=== PATIENT | male | born 1980 | race Caucasian/White ===

== ENCOUNTER → 2020-05-19 09:36 | Outpatient (CLI) | payer OTHER, SELFPAY ==
[2020-05-19 11:58] LABS: Add Manual Diff / Slide Review NO; Basophils Absolute Auto 100 /uL (0-100); Basophils Percent Auto 0.8 % (0-2); Eosinophils Absolute Auto 200 /uL (0-450); Eosinophils Percent Auto 2.6 % (2-4); Hematocrit 46.9 % (41-53); Hemoglobin 16.2 g/dL (13.5-17.5); Lymphocytes Absolute Auto 2300 /uL (1100-4500); Lymphocytes Percent Auto 28.6 % (25-40); Mean Corpuscular HGB Conc 34.6 % (30-36); Mean Corpuscular Hemoglobin 29.3 PG (26-34); Mean Corpuscular Volume 84.9 fL (80-100); Monocytes Absolute Auto 500 /uL (0-900); Monocytes Percent Auto 5.6 % (3-14); Neutrophils Absolute Auto 5100 /uL (1500-7000); Neutrophils Percent Auto 62.4 % (50-75); Platelet Count 169 X10^3/uL (150-400); Red Blood Cell Count 5.53 X10^6/uL (4.5-5.9); Red Cell Distribution Width 13.8 % (11.6-14.8); White Blood Cell Count 8.2 X10^3/uL (4.5-11.0)
[2020-05-19 12:20] LABS: Alanine Aminotransferase 92 IU/L (<50); Albumin 4.5 g/dL (3.5-5.0); Albumin Globulin Ratio 1.5 (1.0-2.8); Alkaline Phosphatase 87 U/L (38-126); Aspartate Aminotransferase 40 IU/L (17-59); BUN Creatinine Ratio 12.4 (6-22); Bilirubin Total 0.6 mg/dL (0.2-1.3); Blood Urea Nitrogen 14 mg/dL (9-20); Calcium 9.5 mg/dL (8.4-10.2); Carbon Dioxide 28 mmol/L (22-32); Chloride 104 mmol/L (98-107); Cholesterol 259 mg/dL (140-199); Estimated Glomerular Filt Rate > 60.0 mL/min (>60); Globulin 3.1 g/dL (1.7-4.1); Glucose 83 mg/dL (70-100); HDL Cholesterol 34 mg/dL (40-60); HEMOLYSIS < 15 (0-50); LDL Cholesterol Calculated 175 mg/dL (<100); Potassium 4.4 mmol/L (3.4-5.1); Sodium 139 mmol/L (137-145); Total Protein 7.6 g/dL (6.3-8.2); Triglycerides 251 mg/dL (35-150)
== END ==
PROVIDERS: PCP Internal Medicine; Referring Provider Internal Medicine; Visit Provider Internal Medicine
DX: K21.9 Gastro-esophageal reflux disease without esophagitis (principal); Z13.1 Encounter for screening for diabetes mellitus; Z13.220 Encounter for screening for lipoid disorders; Z13.6 Encounter for screening for cardiovascular disorders
CPT/HCPCS: 36415; 80053; 80061; 85025

== ENCOUNTER → 2020-05-22 10:16 | Outpatient (CLI) | payer OTHER, SELFPAY ==
[2020-05-22 11:35] LABS: HEMOLYSIS < 15 (0-50); Iron 75 ug/dL (49-181)
[2020-05-22 11:48] LABS: Percent Iron Saturation 20 % (20-50); Total Iron Binding Capacity 366 ug/dL (261-462); Transferrin 300 mg/dL (206-381)
[2020-05-22 12:08] LABS: TSH w/ Reflex to FT4 2.87 uIU/mL (0.47-4.68)
[2020-05-22 15:18] LABS: Hepatitis B Surface Antigen NEGATIVE s/c (NEGATIVE)
[2020-05-22 15:45] LABS: Hep C Virus Ab w/Reflex Quant NEGATIVE s/c (NEGATIVE)
[2020-05-23 04:36] LABS: Ceruloplasmin 23.8 mg/dL (16.0-31.0); Hepatitis B Surf Ab Qualitativ Non Reactive (.)
[2020-05-24 12:14] LABS: Smooth Muscle Antibody 6 Units (0-19)
[2020-05-24 15:17] LABS: ANA Screen, IFA Negative (.)
[2020-05-25 05:10] LABS: Deamidated Gliadin IgA 11 units (0-19); Deamidated Gliadin IgG 3 units (0-19); IGA 210 mg/dL (90-386); t-Transglutaminase IgA <2 U/mL (0-3)
== END ==
PROVIDERS: PCP Internal Medicine; Referring Provider Internal Medicine; Visit Provider Internal Medicine
DX: R94.5 Abnormal results of liver function studies (principal)
CPT/HCPCS: 36415; 82390; 82784; 83516; 83540; 83550; 84443; 86038; 86706; 86803; 87340

== ENCOUNTER → 2020-07-06 15:08 | Outpatient (CLI) | payer OTHER, SELFPAY ==
[2020-07-06 17:13] LABS: Influenza A - CEPHEID Flu A NEGATIVE (NEGATIVE); Influenza B - CEPHEID Flu B NEGATIVE (NEGATIVE)
[2020-07-07 20:44] LABS: COVID19 Sendout Not Detected (Not Detect)
== END ==
PROVIDERS: PCP Internal Medicine; Visit Provider Nurse Practitioner
DX: Z11.59 Encounter for screening for other viral diseases (principal); R68.89 Other general symptoms and signs
CPT/HCPCS: 87502; 87635

== ENCOUNTER → 2020-07-17 12:13 | Outpatient (CLI) | payer OTHER, SELFPAY ==
--- NOTE | 2020-07-17 12:14 | DI.RAD.S_ITS ---
PROCEDURE: XR CHEST 2V INDICATIONS: continued cough TECHNIQUE: 2 views of the chest were acquired. COMPARISON: None. FINDINGS: Surgical changes and devices: None. Lungs and pleura: Lungs are clear. No pleural effusions or pneumothorax. Mediastinum: Mediastinal contours are normal. Heart size is normal. Bones and chest wall: No suspicious bony abnormalities. Soft tissues appear unremarkable. IMPRESSION: No acute disease. Dictated by: Hang Middleton M.D. on 07/17/2020 at 12:55 Approved by: Hang Middleton M.D. on 07/17/2020 at 12:56
== END ==
PROVIDERS: PCP Internal Medicine; Referring Provider Internal Medicine; Visit Provider Physician Assistant
DX: R05 Cough (principal); R09.89 Other specified symptoms and signs involving the circulatory and respiratory systems
CPT/HCPCS: 71046

== ENCOUNTER 2020-11-20 14:09 | Emergency (ER) | payer OTHER, SELFPAY ==
[2020-11-20 14:22] VITALS: BP 146/93; PULSE 102; RESP 16; TEMP 36.7; O2SAT 99; BMI 33.5
--- NOTE | 2020-11-20 14:30 | DI.RAD.S_ITS ---
PROCEDURE: XR CHEST 1V INDICATIONS: chest pain TECHNIQUE: One view of the chest was acquired. COMPARISON: [facility], CR, XR CHEST 2V, 07/17/2020, 12:12. FINDINGS: Surgical changes and devices: None. Lungs and pleura: Lungs are clear. No pleural effusions or pneumothorax. Mediastinum: Mediastinal contours appear normal. Heart size is normal. Bones and chest wall: No suspicious bony lesions. Overlying soft tissues appear unremarkable. IMPRESSION: No acute cardiopulmonary disease. Dictated by: Antonia Godoy M.D. on 11/20/2020 at 14:01 Approved by: Antonia Godoy M.D. on 11/20/2020 at 14:02
--- NOTE | 2020-11-20 14:42 | ED.CHESTPAIN ---
HPI - Chest Pain General Chief Complaint: Chest Pain Stated Complaint: Headache,Throwing Up, Coughing,Weight On Chest Time Seen by Provider: 11/20/20 14:20 Source: patient Mode of arrival: Ambulatory Limitations: no limitations History of Present Illness HPI narrative: 40-year-old male daily smoker without significant medical history presents with a chief complaint of multiple symptoms presenting over this morning including headache, vomiting, dry hacking cough and some chest pressure. His headache is generalized and absent of any provocation or palliation, perhaps worsening with coughing spells. He denies neurologic symptoms such as blurred vision, trouble with speech or focal numbness, tingling or weakness. His cough is worsened with deep breath and does not produce sputum. The chest pain tends to be sharp and worsened with a deep breath and cough. He denies any recent travel. He has had some runny nose and nasal congestion MD complaint: chest pain Duration: intermittent Pain location: other Quality: sharp Relieving factors: nothing Exacerbating factors: inspiration Associated symptoms: nausea, vomiting, fever and cough Treatments prior to arrival chest pain: none Related Data Home Medications Medication Instructions Recorded Confirmed calcium carbonate 200 mg calcium 400 mg PO DAILY PRN tab 04/10/20 10/12/20 (500 mg) chewable tablet Previous Rx's Medication Instructions Recorded albuterol sulfate 90 mcg/actuation 2 puff INHALATION Q4-6H PRN #8 gram 07/06/20 aerosol inhaler ciprofloxacin HCl 250 mg tablet 250 mg PO BID #10 tab 10/10/20 benzonatate [Tessalon Perles] 100 mg PO TID PRN #14 cap 11/20/20 doxycycline hyclate 100 mg PO BID #20 tab 11/20/20 Allergies Allergy/AdvReac Type Severity Reaction Status Date / Time No Known Drug Allergies Allergy Verified 09/20/20 14:58 Review of Systems Constitutional Constitutional: Reports chills, Denies fatigue, Reports fever(s), Denies frequent falls, Reports headache(s), Denies lethargy and Denies weakness Eyes Eyes: Denies change in vision, Denies eye discharge, Denies irritation and Denies loss of vision ENT Ears, Nose, Mouth, and Throat: Denies change in voice, Denies dizziness, Reports headache(s), Denies neck pain, Denies sore throat and Denies throat swelling Cardiovascular Cardiovascular: Reports chest pain, Denies irregular heart rhythm, Denies lightheadedness, Denies palpitations, Reports dyspnea, Denies dyspnea on exertion and Denies orthopnea Respiratory Respiratory: Reports cough, Reports pain on inspiration, Reports pain with cough, Reports dyspnea, Denies dyspnea on exertion and Denies wheezing Gastrointestinal Gastrointestinal: Denies abdominal pain, Denies change in bowel habits, Denies diarrhea, Reports nausea and Reports vomiting Musculoskeletal Musculoskeletal: Denies neck pain and Denies numbness Integumentary/Breasts Skin/Breast: Denies pruritus, Denies erythema, Denies rash and Denies wounds Neurologic Neurologic: Denies behavioral changes, Denies confusion, Denies dizziness, Denies frequent falls, Reports headache(s), Denies loss of vision, Denies numbness and Denies weakness Psychiatric Psychiatric: Denies anxiety, Denies behavioral changes, Denies confusion, Denies depression, Denies homicidal ideation and Denies suicidal ideation Endocrine Endocrine: Denies fatigue, Denies flushing and Denies palpitations Hematologic/Lymphatic Hematologic/Lymphatic: Denies easy bruising Allergic/Immunologic Allergic/Immunologic: Denies urticaria, Denies throat swelling and Denies wheezing Patient History Medical History Epididymal congestion pain Hearing loss Screening and evaluation for vasectomy Sinusitis Tinnitus Vision disorder Surgical History Anesthesia S/P left knee arthroscopy (~06/2019) Family History Father Hyperlipidemia Hypertension Heart disease Mother Atrial fibrillation Social History marital status: unmarried,single number of children: 3 occupational status: employed Smoking Status: Current every day smoker Tobacco: How many years used: 20 quit status: considering quitting second hand exposure: No alcohol intake: never substance use type: does not use during the past year weight has: remained stable well-balanced diet: daily or most days daily servings fruits/ve-4 caffeine: Yes (2+) eating out: rarely or never Type(s) of exercise: walking frequency: daily duration: 15-30 minutes/day Smoking Status: Current every day smoker tobacco type: cigarettes Substance Use Type: does not use Exam Narrative Exam Narrative: GENERAL: [40] year old patient appears stated age. Well-nourished, well-developed patient, in mild distress. HEAD: Atraumatic. Normocephalic. EYES: Pupils equal round and reactive. Extraocular motions intact. No scleral icterus. No injection or drainage. ENT: Nose without bleeding, purulent drainage. Throat without erythema, tonsillar hypertrophy or exudate. Airway patent. NECK: Trachea midline. Non tender no meningeal signs CARDIOVASCULAR: Regular rate and rhythm without murmurs, gallops, or rubs. RESPIRATORY: Very minimal expiratory wheeze, deep breath illicit is dry hacking cough. No rales or rhonchi GASTROINTESTINAL: Abdomen soft, non-tender, nondistended. EXTREMITIES: No edema or joint tenderness. BACK: Nontender without deformity or crepitance. No flank tenderness. NEURO: AOx3. SKIN: No rash or erythema of visible areas NIH Stroke Scale 1a. LOC: Patient is alert and keenly responsive (0) 1b. LOC Questions: Patient answers both LOC questions accurately (0) 1c. LOC Commands: Patient performs both tasks correctly (0) 2. Best Gaze: Normal (0) 3. Visual: No visual loss (0) 4. Facial palsy: Normal symmetrical movements (0) 5. Motor arm: No drift (0) 6. Motor leg: No drift (0) 7. Limb ataxia: Absent (0) 8. Sensory: Normal (0) 9. Best language: No aphasia; normal (0) 10. Dysarthria: Normal (0) 11. Extinction and inattention: No abnormality (0) NIHSS: 0 Initial Vital Signs Initial Vital Signs: Vital Signs Temperature 98.0 F 11/20/20 14:22 Pulse Rate 102 H 11/20/20 14:22 Respiratory Rate 16 11/20/20 14:22 Blood Pressure 146/93 H 11/20/20 14:22 Pulse Oximetry 99 11/20/20 14:22 Course Orders Ordered: ED Orders 11/20/20 14:24 EKG-12 Lead Stat 11/20/20 14:25 COVID19 Stat 11/20/20 14:30 XR chest 1V Stat 11/20/20 14:38 Complete Blood Count AUTO DIFF Stat Comprehensive Metabolic Panel Stat Lactate (Lactic Acid) Stat Lactate Dehydrogenase Stat Lipase Stat Magnesium Stat Partial Thromboplastin Time Stat Procalcitonin Stat Prothrombin Time INR Stat Troponin & CK Cardiac Panel Stat Discontinued Medications Albuterol/Ipratropium (Albuterol/Ipratropium 3 Ml Ampul) 3 ml INH NOW ONE Stop: 11/20/20 15:32 Last Admin: 11/20/20 15:38 Dose: 3 ml Documented by: MO Sodium Chloride (Normal Saline 0.9%) 1,000 mls @ 1,000 mls/hr IV BOLUS ONE Stop: 11/20/20 16:29 Last Infusion: 11/20/20 16:43 Dose: 0 mls/hr Documented by: Admin: 11/20/20 15:38 Dose: 1,000 mls/hr Documented by: MO Ketorolac Tromethamine (Ketorolac 60 Mg/2 Ml Vial) 15 mg IV NOW ONE Stop: 11/20/20 15:31 Last Admin: 11/20/20 15:38 Dose: 15 mg Documented by: MO Methylprednisolone (Methylprednisolone 125 Mg/2 Ml Vial) 125 mg IV NOW ONE Stop: 11/20/20 15:31 Last Admin: 11/20/20 15:37 Dose: 125 mg Documented by: MO Reevaluation(s) Reevaluation #1: Patient feeling significant improvement after above-stated therapies Vital Signs Vital signs: Vital Signs - 8 hr 11/20/20 14:22 11/20/20 15:44 11/20/20 16:10 Temperature 98.0 F Pulse Rate 102 H 77 83 Respiratory Rate 16 18 23 Blood Pressure 146/93 H Pulse Oximetry 99 97 95 11/20/20 16:30 11/20/20 16:31 11/20/20 16:36 Temperature Pulse Rate 78 79 79 Respiratory Rate 23 20 17 Blood Pressure 122/64 Pulse Oximetry 94 95 97 MDM - Chest Pain Lab Data Result diagrams: 11/20/20 14:38 11/20/20 14:38 Labs: Lab Results 11/20/20 11/20/20 11/20/20 Range/Units 14:25 14:38 14:38 WBC 8.0 (4.5-11.0) X10^3/uL RBC 5.10 (4.5-5.9) X10^6/uL Hgb 14.9 (13.5-17.5) g/dL Hct 43.4 (41-53) % MCV 85.1 (80-100) fL MCH 29.2 (26-34) PG MCHC 34.3 (30-36) % RDW 13.6 (11.6-14.8) % Plt Count 145 L (150-400) X10^3/uL Neut % (Auto) 62.1 (50-75) % Lymph % (Auto) 30.1 (25-40) % [place] % (Auto) 4.6 (3-14) % Eos % (Auto) 2.0 (2-4) % Baso % (Auto) 1.2 (0-2) % Neut # (Auto) 4900 (1485-9072) /uL Lymph # (Auto) 2400 (6051-4481) /uL [place] # (Auto) 400 (0-900) /uL Eos # (Auto) 200 (0-450) /uL Baso # (Auto) 100 (0-100) /uL PT 11.6 (10.1-12.7) SECONDS INR 1.0 (0.9-1.3) APTT 33 (26.4-36.2) SECONDS Sodium (137-145) mmol/L Potassium (3.4-5.1) mmol/L Chloride (98-107) mmol/L Carbon Dioxide (22-32) mmol/L BUN (9-20) mg/dL Creatinine (0.66-1.25) mg/dL Estimated GFR (>60) mL/min BUN/Creatinine Ratio (6-22) Glucose (70-100) mg/dL Lactate (0.7-2.1) mmol/L Calcium (8.4-10.2) mg/dL Magnesium (1.6-2.3) mg/dL Total Bilirubin (0.2-1.3) mg/dL AST (17-59) IU/L ALT (<50) IU/L Alkaline Phosphatase (38-126) U/L Lactate Dehydrogenase (313-618) U/L Total Creatine Kinase (55-170) U/L CK-MB (CK-2) (<2.37) ng/mL CK-MB (CK-2) Rel Index (1.5-5.0) % Troponin I (0.01-0.034) ng/mL Total Protein (6.3-8.2) g/dL Albumin (3.5-5.0) g/dL Globulin (1.7-4.1) g/dL Albumin/Globulin Ratio (1.0-2.8) Lipase (23-300) U/L Procalcitonin (<0.5) ng/mL SARS-CoV-2 (PCR) Negative (Negative) 11/20/20 11/20/20 Range/Units 14:38 14:38 WBC (4.5-11.0) X10^3/uL RBC (4.5-5.9) X10^6/uL Hgb (13.5-17.5) g/dL Hct (41-53) % MCV (80-100) fL MCH (26-34) PG MCHC (30-36) % RDW (11.6-14.8) % Plt Count (150-400) X10^3/uL Neut % (Auto) (50-75) % Lymph % (Auto) (25-40) % [place] % (Auto) (3-14) % Eos % (Auto) (2-4) % Baso % (Auto) (0-2) % Neut # (Auto) (5882-9686) /uL Lymph # (Auto) (8651-2643) /uL [place] # (Auto) (0-900) /uL Eos # (Auto) (0-450) /uL Baso # (Auto) (0-100) /uL PT (10.1-12.7) SECONDS INR (0.9-1.3) APTT (26.4-36.2) SECONDS Sodium 138 (137-145) mmol/L Potassium 3.7 (3.4-5.1) mmol/L Chloride 111 H (98-107) mmol/L Carbon Dioxide 23 (22-32) mmol/L BUN 13 (9-20) mg/dL Creatinine 0.98 (0.66-1.25) mg/dL Estimated GFR > 60.0 (>60) mL/min BUN/Creatinine Ratio 13.3 (6-22) Glucose 109 H (70-100) mg/dL Lactate 1.2 (0.7-2.1) mmol/L Calcium 8.4 (8.4-10.2) mg/dL Magnesium 2.1 (1.6-2.3) mg/dL Total Bilirubin 0.2 (0.2-1.3) mg/dL AST 30 (17-59) IU/L ALT 52 H (<50) IU/L Alkaline Phosphatase 74 (38-126) U/L Lactate Dehydrogenase 450 (313-618) U/L Total Creatine Kinase 233 H (55-170) U/L CK-MB (CK-2) 1.18 (<2.37) ng/mL CK-MB (CK-2) Rel Index 0.5 L (1.5-5.0) % Troponin I < 0.012 (0.01-0.034) ng/mL Total Protein 6.7 (6.3-8.2) g/dL Albumin 3.9 (3.5-5.0) g/dL Globulin 2.8 (1.7-4.1) g/dL Albumin/Globulin Ratio 1.4 (1.0-2.8) Lipase 86 (23-300) U/L Procalcitonin 0.06 (<0.5) ng/mL SARS-CoV-2 (PCR) (Negative) MDM Narrative Medical decision making narrative: Patient with multiple symptoms starting over the course of the day. He is nontoxic and shows no signs of sepsis. His work of breathing his mild and requires no supplemental oxygen. Labs and imaging are very reassuring. COVID considered but thought unlikely given negative swab. Typical pneumonia considered but thought unlikely given presentation and imaging. Atypical pneumonia versus viral upper respiratory infection considered most likely, patient given coverage for atypical pneumonias given his history of smoking and prior improvement under these circumstances. Return precautions given and questions answered to his apparent satisfaction Discharge Plan Departure Patient Disposition: Home Clinical Impression: Atypical pneumonia Instructions: DI for Atypical Pneumonia Activity Restrictions/Additional Instructions: *You have been diagnosed with [atypical pneumonia] *What to do: *Take medications as directed *Follow up with your primary care provider in 2-3 days, call for an appointment. Let them know you were seen in the Emergency Department and that we ask that you be seen in follow up *Return to ER if you should have any new, worsening or concerning symptoms Prescriptions: New benzonatate [Tessalon Perles] 100 mg capsule 100 mg PO TID PRN (Reason: cough) Qty: 14 RF: 0 doxycycline hyclate 100 mg tablet 100 mg PO BID Qty: 20 RF: 0 No Action albuterol sulfate 90 mcg/actuation HFA aerosol inhaler 2 puff INHALATION Q4-6H PRN (Reason: shortness of breath or wheezing) Qty: 8 RF: 0 ciprofloxacin HCl 250 mg tablet 250 mg PO BID Qty: 10 RF: 0 calcium carbonate [Tums] 200 mg calcium (500 mg) tablet,chewable 400 mg PO DAILY PRNRF: 0 Referrals: Humza Houston MD [Primary Care Provider] -
[2020-11-20 14:50] LABS: Add Manual Diff / Slide Review NO; Basophils Absolute Auto 100 /uL (0-100); Basophils Percent Auto 1.2 % (0-2); Eosinophils Absolute Auto 200 /uL (0-450); Hematocrit 43.4 % (41-53); Hemoglobin 14.9 g/dL (13.5-17.5); Lymphocytes Absolute Auto 2400 /uL (1100-4500); Lymphocytes Percent Auto 30.1 % (25-40); Mean Corpuscular HGB Conc 34.3 % (30-36); Mean Corpuscular Hemoglobin 29.2 PG (26-34); Mean Corpuscular Volume 85.1 fL (80-100); Monocytes Absolute Auto 400 /uL (0-900); Monocytes Percent Auto 4.6 % (3-14); Neutrophils Absolute Auto 4900 /uL (1500-7000); Neutrophils Percent Auto 62.1 % (50-75); Platelet Count 145 X10^3/uL (150-400); Red Cell Distribution Width 13.6 % (11.6-14.8)
[2020-11-20 14:51] LABS: COVID19 -Nasal RAPID Negative (Negative)
[2020-11-20 14:58] LABS: Prothrombin Time 11.6 SECONDS (10.1-12.7)
[2020-11-20 15:00] LABS: PTT Partial Thromboplastin Tim 33 SECONDS (26.4-36.2)
[2020-11-20 15:02] LABS: Lactate (Lactic Acid) 1.2 mmol/L (0.7-2.1)
[2020-11-20 15:03] LABS: Alanine Aminotransferase 52 IU/L (<50); Albumin 3.9 g/dL (3.5-5.0); Albumin Globulin Ratio 1.4 (1.0-2.8); Alkaline Phosphatase 74 U/L (38-126); Aspartate Aminotransferase 30 IU/L (17-59); BUN Creatinine Ratio 13.3 (6-22); Bilirubin Total 0.2 mg/dL (0.2-1.3); Blood Urea Nitrogen 13 mg/dL (9-20); Calcium 8.4 mg/dL (8.4-10.2); Carbon Dioxide 23 mmol/L (22-32); Chloride 111 mmol/L (98-107); Creatine Kinase 233 U/L (55-170); Estimated Glomerular Filt Rate > 60.0 mL/min (>60); Globulin 2.8 g/dL (1.7-4.1); Glucose 109 mg/dL (70-100); HEMOLYSIS < 15 (0-50); Lactate Dehydrogenase 450 U/L (313-618); Lipase 86 U/L (23-300); Magnesium 2.1 mg/dL (1.6-2.3); Potassium 3.7 mmol/L (3.4-5.1); Sodium 138 mmol/L (137-145); Total Protein 6.7 g/dL (6.3-8.2)
[2020-11-20 15:14] LABS: Troponin I < 0.012 ng/mL (0.01-0.034)
[2020-11-20 15:19] LABS: CKMB % Relative Index 0.5 % (1.5-5.0); Creatine Kinase MB 1.18 ng/mL (<2.37); Procalcitonin 0.06 ng/mL (<0.5)
[2020-11-20] MEDS: methylPREDNISolone 125 MG/2 ML VIAL IV (15:37)
[2020-11-20] MEDS: KETOROLAC 60 MG/2 ML VIAL 15 MG IV (15:38)
[2020-11-20] MEDS: ALBUTEROL/IPRATROPIUM 3 ML AMPUL INH (15:38)
[2020-11-20] MEDS: SODIUM CHLORIDE 0.9% 1,000 ML 1000 ML IV (15:38)
[2020-11-20 15:44] VITALS: PULSE 77; RESP 18; O2SAT 97
[2020-11-20 16:10] VITALS: PULSE 83; RESP 23; O2SAT 95
[2020-11-20 16:30] VITALS: PULSE 78; RESP 23; O2SAT 94
[2020-11-20 16:31] VITALS: PULSE 79; RESP 20; O2SAT 95
[2020-11-20 16:36] VITALS: BP 122/64; PULSE 79; RESP 17; O2SAT 97
== END 2020-11-20 16:58 | disposition home or self-care (01) ==
PROVIDERS: Emergency Provider Emergency Medicine; PCP Internal Medicine
DX: J18.9 Pneumonia, unspecified organism (principal); R07.9 Chest pain, unspecified; R05 Cough; R51.9 Headache, unspecified; R11.2 Nausea with vomiting, unspecified; R50.9 Fever, unspecified; Z20.822 Contact with and (suspected) exposure to COVID-19
CPT/HCPCS: 36415; 71045; 80053; 82550; 82553; 83605; 83615; 83690; 83735; 84145; 84484; 85025; 85610; 85730; 87635; 93005; 93010; 94640; 96361; 96374; 96375; 99281; 99284; C9803; J1885; J2930

== ENCOUNTER → 2021-01-17 11:46 | Outpatient (CLI) | payer OTHER, SELFPAY ==
[2021-01-17 12:59] LABS: COVID19 -Nasal RAPID Negative (Negative)
== END ==
PROVIDERS: PCP Internal Medicine; Visit Provider Student in an Organized Health Care Education/Training Program
DX: R10.9 Unspecified abdominal pain (principal); R19.7 Diarrhea, unspecified
CPT/HCPCS: 87635